=== PATIENT | female | born 1955 | race Caucasian/White ===

== ENCOUNTER 2023-06-16 11:34 | Outpatient (CLI) | payer MEDICARE, SELFPAY ==
--- NOTE | ~2023-06-16 | XR_ITS ---
XR abdomen/kub 1V 06/16/2023 12:00 INDICATION: Left lower quadrant pain. TECHNIQUE: KUB COMPARISON: None FINDINGS: Bowel gas pattern is normal. There are cholecystectomy clips. There is no evidence of free air, mass, organomegaly, ascites or obstruction. No abnormal calculi are seen. Calcifications in the pelvis are believed to be phleboliths. The bones appear intact. IMPRESSION: 1: No acute abdominal abnormality identified. Reviewed, dictated and finalized at location L.
== END 2023-06-16 11:35 | disposition home or self-care (01) ==
PROVIDERS: PCP Family Medicine; Visit Provider Nurse Practitioner
DX: R10.32 Left lower quadrant pain (principal); M25.551 Pain in right hip; M25.552 Pain in left hip
CPT/HCPCS: 74018

== ENCOUNTER 2023-06-29 07:07 | Outpatient (CLI) | payer MEDICARE, SELFPAY ==
--- NOTE | ~2023-06-29 | CT_ITS ---
EXAMINATION: CT abdomen pelvis w con DATE: 06/29/2023 07:59 INDICATION: Left lower quadrant pain TECHNIQUE: Computed tomography (CT) of the abdomen and pelvis was performed with 100 cc Omnipaque 350 intravenous contrast. The dose-length product was 185.67 mGy-cm. Automated exposure control and iter ative reconstruction technique were employed. COMPARISON: None. FINDINGS: Lung bases unremarkable. Heart size normal. No significant pleural or pericardial effusion. There is a right renal cyst measuring 2 cm. Status post cholecystectomy. The liver, spleen, pancreas , adrenal glands and left kidney are unremarkable. Nonobstructive bowel gas pattern. Moderate colonic fecal loading. No evidence for diverticulitis or appendicitis. No hydronephrosis. There is atheroscl erosis of the aorta without aneurysm. No lymphadenopathy. Bladder is decompressed. No abnormal pelvic masses or fluid collections. IMPRESSION: 1. No acute abdominal abnormality. Reviewed, dictated and finalized at location B.
[2023-06-29 07:52] LABS: Estimated Glomerular Filt Rate > 60
== END 2023-06-29 07:08 | disposition home or self-care (01) ==
LOC: ANHIMG 07:13
PROVIDERS: PCP Family Medicine; Visit Provider Nurse Practitioner
DX: R10.32 Left lower quadrant pain (principal)
CPT/HCPCS: 74177; Q9967

== ENCOUNTER 2023-08-04 09:12 | Outpatient (CLI) | payer MEDICARE, SELFPAY ==
--- NOTE | ~2023-08-04 | XR_ITS ---
Supine and upright views of the abdomen Clinical history: Abdominal pain COMPARISON: 06/08/2023 Findings: Bowel gas pattern is nonspecific. No evidence for obstruction or free air. No abnormal mass lesion or calcification is seen. Stable right upper quadrant surgical clips. Stable calcified pelvic phleboliths. Osseous structures are intact. Impression: No significant abnormality is seen. Reviewed, dictated and finalized at [facility]. [facility] Impression: No significant abnormality is seen.
== END 2023-08-04 09:13 | disposition home or self-care (01) ==
PROVIDERS: PCP Family Medicine; Visit Provider Nurse Practitioner
DX: R10.12 Left upper quadrant pain (principal); K58.1 Irritable bowel syndrome with constipation; K92.89 Other specified diseases of the digestive system
CPT/HCPCS: 74018

== ENCOUNTER 2024-04-10 15:09 | Outpatient (CLI) | payer MEDICARE, SELFPAY ==
--- NOTE | ~2024-04-10 | XR_ITS ---
EXAM: XR abdomen/kub 1V DATE: 04/10/2024 15:27 HISTORY: R11.2 - Nausea with vomiting, unspecified . COMPARISON: 08/04/2023. FINDINGS: Cholecystectomy clips. Clear lung bases. Normal bowel gas pattern. No organomegaly. Multipl e pelvic phleboliths. Lumbar degenerative disc disease. Mild bilateral hip osteoarthritis. IMPRESSION: Unremarkable abdominal radiograph findings. Reviewed, dictated and finalized at location K.
[2024-04-10 16:02] LABS: Hematocrit 41.3 % (37.0-47.0); Hemoglobin 13.7 g/dL (12.0-15.0); Mean Corpuscular HGB Conc 33.2 g/dl (32-36); Mean Corpuscular Hemoglobin 30.7 pg (26-34); Mean Corpuscular Volume 92.6 fl (80-100); Mean Platelet Volume 11.4 fl (7.4-10.4); Platelet Count Result 154 k/mm3 (150-375); Red Blood Count 4.46 M/mm3 (4.2-5.4); Red Cell Distribution Width 14.1 % (11.5-14.5); White Blood Count 8.1 K/mm3 (4.5-10.0)
[2024-04-10 16:26] LABS: Erythrocyte Sedimentation Rate 16 mm/hr (0-20)
[2024-04-10 17:05] LABS: CRP < 0.5 mg/dL (<1.0)
== END 2024-04-10 15:10 | disposition home or self-care (01) ==
LOC: ANHIMG 15:14
PROVIDERS: PCP Family Medicine; Visit Provider Nurse Practitioner
DX: R10.12 Left upper quadrant pain (principal); K92.89 Other specified diseases of the digestive system; R19.7 Diarrhea, unspecified; R63.0 Anorexia; F41.9 Anxiety disorder, unspecified; M25.551 Pain in right hip; M25.552 Pain in left hip
CPT/HCPCS: 36415; 74018; 84443; 85027; 85652; 86140

== ENCOUNTER 2024-04-12 08:06 | Outpatient (CLI) | payer MEDICARE, SELFPAY ==
[2024-04-12 09:16] LABS: Alanine Aminotransferase 12 U/L (6-35); Albumin Level 4.6 g/dL (3.5-5.1); Alkaline Phosphatase 94 U/L (38-126); Anion Gap 9 mmol/L (4-12); Aspartate Amino Transferase 25 U/L (14-36); Bilirubin,Total 0.3 mg/dL (0.2-1.3); Blood Urea Nitrogen 16 mg/dL (7-17); Calcium 9.3 mg/dL (8.4-10.2); Carbon Dioxide 26 mmol/L (22-30); Chloride 104 mmol/L (98-107); Estimated Glomerular Filt Rate > 60; Glucose 89 mg/dL (65-110); Potassium 4.3 mmol/L (3.4-5.0); Sodium 139 mmol/L (137-145)
[2024-04-12 10:33] LABS: Toxigenic C. Diff NEGATIVE (NEGATIVE)
[2024-04-16 13:58] LABS: H pylori Ag Stool RESULT: Not Detected
[2024-04-20 18:54] LABS: Calprotectin, Stool 114 mcg/g
[2024-04-20 22:33] LABS: Pancreatic Elastase, Stool 487 mcg/g
== END 2024-04-12 08:07 | disposition home or self-care (01) ==
LOC: ANHLAB 08:09
PROVIDERS: PCP Family Medicine; Visit Provider Nurse Practitioner
DX: K92.89 Other specified diseases of the digestive system (principal); A04.8 Other specified bacterial intestinal infections; R11.2 Nausea with vomiting, unspecified; R19.4 Change in bowel habit; R19.7 Diarrhea, unspecified; R63.0 Anorexia
CPT/HCPCS: 36415; 80053; 82653; 83993; 87045; 87177; 87209; 87269; 87338; 87427; 87449; 87493

== ENCOUNTER 2024-06-20 13:35 | Outpatient (CLI) | payer MEDICARE, SELFPAY ==
--- NOTE | ~2024-06-20 | CT_ITS ---
EXAMINATION: CT abdomen pelvis w con DATE: 06/20/2024 14:02 INDICATION: Unspecified abdominal pain. TECHNIQUE: Computed tomography (CT) of the abdomen and pelvis was performed with 100 mL Omnipaque 350 intravenous contrast. Automated exposure control and iterative reconstruction technique were employe d. The dose-length product was 266.28 mGy-cm. COMPARISON: CT abdomen and pelvis 06/29/2023 FINDINGS: The visualized portions of the lung bases demonstrate mild atelectasis on the right. No ple ural effusion. The heart size is normal. No pericardial effusion. The liver and spleen are normal. Th ere are changes of cholecystectomy. The pancreas and adrenal glands are normal. There is a 2.2 cm cys t in right kidney. Left kidney is normal. There are no dilated loops of bowel. The appendix is not vi sualized. There is calcified atherosclerosis of the aorta and many of the other arteries. There are n o pathologically enlarged lymph nodes. There is no free intraperitoneal fluid. There is mild lumbar s pondylosis. IMPRESSION: 1. No etiology for the patient's symptoms. Reviewed, dictated and finalized at location A.
[2024-06-20 13:56] LABS: Estimated Glomerular Filt Rate > 60
== END 2024-06-20 13:36 | disposition home or self-care (01) ==
LOC: ANHIMG 13:40
PROVIDERS: PCP Family Medicine; Visit Provider Nurse Practitioner
DX: R10.12 Left upper quadrant pain (principal); R10.13 Epigastric pain; R10.33 Periumbilical pain; R11.2 Nausea with vomiting, unspecified
CPT/HCPCS: 74177; Q9967

== ENCOUNTER 2024-07-13 00:32 | Day surgery (SDC) | payer MEDICARE, SELFPAY ==
[2024-07-06 11:11] VITALS: BMI 20.4
--- NOTE | 2024-07-06 13:12 | PC.NURSE ---
Spoke with patient regarding medication plavix. Pt. verbalizes understanding that the last dose of plavix is to be taken on 07/08/2024 and the Endoscopist will instruct them when to restart after the procedure.
[2024-07-13 09:39] VITALS: BP 146/73; PULSE 86; RESP 20; TEMP 36.3; O2SAT 100; BMI 19.5
--- NOTE | 2024-07-13 09:40 | P.PNAN_ITS ---
Anes - Initial Pre Proc Eval Procedure: Operation Date: 07/13/24 11:00 Proposed Procedures p Esophagogastroduodenoscopy & Colonoscopy - Caden Ruiz MD Date/Time: 07/13/24 09:40 Surgeon: Caden Ruiz MD Pre Op Diagnosis: diarrhea, epigastric pain, nausea, GERD Patient Data Age: 68 Gender: F Height: 1.73 m Weight: 61 kg Allergies Allergy/AdvReac Type Severity Reaction Status Date / Time levofloxacin [From Levaquin] Allergy Intermediate body aches Verified 07/13/24 09:35 Home Medications Medication Instructions Recorded Confirmed Type aspirin 81 mg tablet,delayed 81 mg PO DAILY 06/16/23 07/13/24 History release (Adult Aspirin Regimen) cholecalciferol (vitamin D3) 25 25 mcg PO DAILY 06/16/23 07/13/24 History mcg (1,000 unit) capsule cyanocobalamin (vitamin B-12) 1,000 mcg subcut MONTHLY 06/16/23 07/13/24 History 1,000 mcg/mL injection kit magnesium 200 mg tablet 400 mg PO DAILY 06/16/23 07/13/24 History potassium chloride 20 mEq 20 meq PO DAILY 06/16/23 07/13/24 History tablet,extended release zolpidem 5 mg tablet 5 mg PO QHS 06/16/23 07/13/24 History alendronate 70 mg tablet 70 mg PO WEEKLY 08/25/23 07/13/24 History lorazepam 0.5 mg tablet (Ativan) 0.5 mg PO DAILY PRN Anxiety 08/25/23 07/13/24 History amlodipine 5 mg tablet 5 mg PO DAILY 04/10/24 07/13/24 History clopidogrel 75 mg tablet (Plavix) 75 mg PO DAILY 04/10/24 07/13/24 History coenzyme Q10 100 mg capsule 100 mg PO HS 04/10/24 07/13/24 History mv-mn-folic 200 mcg-vit K 15 1 cap PO BID 04/10/24 07/13/24 History mcg-lutein 5 mg-zeaxanthin 1 mg capsule (PreserVision AREDS 2 Plus Multivit) rabeprazole 20 mg tablet,delayed 20 mg PO BID #60 tabs 04/10/24 07/13/24 Rx release (AcipHex) rosuvastatin 20 mg tablet 20 mg PO HS 04/10/24 07/13/24 History hyoscyamine sulfate 0.125 mg 0.125 mg PO .every 6 hours PRN 06/12/24 07/13/24 Rx tablet (Levsin) abdominal pain #120 tabs metoprolol succinate 50 mg 50 mg PO DAILY 06/12/24 07/13/24 History tablet,extended release 24 hr umeclidinium 62.5 mcg-vilanterol 1 inh inhalation DAILY 06/12/24 07/13/24 History 25 mcg/actuation powdr for inhalation (Anoro Ellipta) metoclopramide HCl 5 mg tablet 5 mg PO TID Nausea 07/06/24 07/13/24 History sertraline 100 mg tablet 200 mg PO DAILY 07/06/24 07/13/24 History sucralfate 1 gram tablet (Carafate) 1 g PO WMHS 07/06/24 07/13/24 History trazodone 100 mg tablet 200 mg PO HS PRN Insomnia 07/06/24 07/13/24 History Patient hx anesthesia problems: none Family hx anesthesia problems: none Results Review: All pre-operative results and documents have been reviewed as part of the pre- operative evaluation. [facility] Past Medical History Medical History Abnormal weight loss Bilateral hip pain Chronic constipation Chronic gastritis Decreased appetite Dysphagia Epigastric pain FH: cholecystectomy Gas bloat syndrome GERD with esophagitis Irritable bowel syndrome with constipation LLQ pain LUQ pain Nausea Surgical History Surgical History H/O: hysterectomy Social History Social History Smoking packs per day: 1 Smoking cigarettes per day: 20.0 Years smoked: 15 Smoking pack-years: 15.00 Smoking status: Former smoker Tobacco type: cigarettes Second hand tobacco smoke exposure: Yes Alcohol intake: never Substance use: never Substance use type: does not use Living arrangements: with family Occupation/Education: occupation Gender identity (if verbalized by the patient): Female Spiritual care concerns: No Anes - Eval Final PreProcedure Day of Procedure 07/13/24 09:40 Patient weight: normal Heart: regular rate and rhythm Lungs: clear to auscultation Airway: Mallampati scale and special considerations (Teeth in poor condition, none loose. ) Neurological: alert and oriented Last oral intake: >/= 8 hours ASA classification: III Emergent: no Anesthetic plan: proceed Anesthesia type and monitoring: general GIVS and standard monitoring Results Review: All pre-operative results and documents have been reviewed as part of the pre- operative evaluation. HTN, hyperlipidemia, CKD, CVA, s/p PTCA 10/12 to LAD, cleared to hold AC for this procedure. Informed Consent: The patient's anesthetic plan and its attendant risks and benefits were discussed with the patient/family/POA. Questions were solicited and answers provided to the satisfaction of the patient/family/POA.
[2024-07-13] MEDS: LACTATED RINGERS 1,000 ML 150 ML IV CONT (09:45)
--- NOTE | 2024-07-13 09:46 | PM.HPGS ---
History of Present Illness History of Present Illness Consent: Risks, benefits, and alternatives have been discussed and questions answered. Patient agrees to proceed with procedure. Chief complaint: diarrhea, epigastric pain, nausea, GERD Narrative: Jamia Rowan is a 68 year old female here for egd and colonoscopy (had both last year at another hospital, gastritis, rectal polyps). Daily nausea and abdominal pain, also loose stools. Using ppi, levsin, reglan prn. CT negative, CBC, CMP, TSH, CRP, ESR WNL Stool Calprotectin borderline elevated at 114, H.pylori Stool Negative, Fecal Elastase WNL Review of Systems Review of Systems: All systems reviewed & are unremarkable except as noted in HPI and below PMFSH Past Medical History Medical History Abnormal weight loss Bilateral hip pain Chronic constipation Chronic gastritis Decreased appetite Dysphagia Epigastric pain FH: cholecystectomy Gas bloat syndrome GERD with esophagitis Irritable bowel syndrome with constipation LLQ pain LUQ pain Nausea Surgical History Surgical History H/O: hysterectomy Social History Social History Smoking packs per day: 1 Smoking cigarettes per day: 20.0 Years smoked: 15 Smoking pack-years: 15.00 Smoking status: Former smoker Tobacco type: cigarettes Second hand tobacco smoke exposure: Yes Alcohol intake: never Substance use: never Substance use type: does not use Living arrangements: with family Occupation/Education: occupation Gender identity (if verbalized by the patient): Female Spiritual care concerns: No Meds Home Medications and Allergies Home Medications Medication Instructions Recorded Confirmed Type aspirin 81 mg tablet,delayed 81 mg PO DAILY 06/16/23 07/13/24 History release (Adult Aspirin Regimen) cholecalciferol (vitamin D3) 25 25 mcg PO DAILY 06/16/23 07/13/24 History mcg (1,000 unit) capsule cyanocobalamin (vitamin B-12) 1,000 mcg subcut MONTHLY 06/16/23 07/13/24 History 1,000 mcg/mL injection kit magnesium 200 mg tablet 400 mg PO DAILY 06/16/23 07/13/24 History potassium chloride 20 mEq 20 meq PO DAILY 06/16/23 07/13/24 History tablet,extended release zolpidem 5 mg tablet 5 mg PO QHS 06/16/23 07/13/24 History alendronate 70 mg tablet 70 mg PO WEEKLY 08/25/23 07/13/24 History lorazepam 0.5 mg tablet (Ativan) 0.5 mg PO DAILY PRN Anxiety 08/25/23 07/13/24 History amlodipine 5 mg tablet 5 mg PO DAILY 04/10/24 07/13/24 History clopidogrel 75 mg tablet (Plavix) 75 mg PO DAILY 04/10/24 07/13/24 History coenzyme Q10 100 mg capsule 100 mg PO HS 04/10/24 07/13/24 History mv-mn-folic 200 mcg-vit K 15 1 cap PO BID 04/10/24 07/13/24 History mcg-lutein 5 mg-zeaxanthin 1 mg capsule (PreserVision AREDS 2 Plus Multivit) rabeprazole 20 mg tablet,delayed 20 mg PO BID #60 tabs 04/10/24 07/13/24 Rx release (AcipHex) rosuvastatin 20 mg tablet 20 mg PO HS 04/10/24 07/13/24 History hyoscyamine sulfate 0.125 mg 0.125 mg PO .every 6 hours PRN 06/12/24 07/13/24 Rx tablet (Levsin) abdominal pain #120 tabs metoprolol succinate 50 mg 50 mg PO DAILY 06/12/24 07/13/24 History tablet,extended release 24 hr umeclidinium 62.5 mcg-vilanterol 1 inh inhalation DAILY 06/12/24 07/13/24 History 25 mcg/actuation powdr for inhalation (Anoro Ellipta) metoclopramide HCl 5 mg tablet 5 mg PO TID Nausea 07/06/24 07/13/24 History sertraline 100 mg tablet 200 mg PO DAILY 07/06/24 07/13/24 History sucralfate 1 gram tablet (Carafate) 1 g PO WMHS 07/06/24 07/13/24 History trazodone 100 mg tablet 200 mg PO HS PRN Insomnia 07/06/24 07/13/24 History Allergies Allergy/AdvReac Type Severity Reaction Status Date / Time levofloxacin [From [facility]] Allergy Intermediate body aches Verified 07/13/24 09:35 Vital Signs Vital Signs - 24 hr 07/13/24 09:39 Temperature 97.3 F L Pulse Rate 86 Respiratory Rate 20 Blood Pressure 146/73 H Pulse Oximetry 100 Oxygen Delivery Room Air Exam Const: General: comfortable and no acute distress HENMT: Face/Nose/Sinus: Normal nares present Eyes: General: appearance normal, both eyes and all related structures Neck: Neck: no JVD Resp: Auscultation: clear to auscultation bilaterally Cardio: Rate: regular rate Rhythm: regular rhythm GI: Inspection: non-distended GI Palp: Yes Soft to palpation Skin: General skin exam: normal color Neuro: General: gait normal Speech: normal speech Extrem: General: normal to inspection Psych: Mental Status: mental status grossly normal Assessment and Plan Assessment and plan (1) Diarrhea: Code(s): R19.7 - Diarrhea, unspecified Status: Acute Assessment and Plan: colonoscopy with random bx (2) Nausea & vomiting: Code(s): R11.2 - Nausea with vomiting, unspecified Status: Acute Assessment and Plan: egd with bx (3) Epigastric pain: Code(s): R10.13 - Epigastric pain Status: Acute
[2024-07-13 10:13] VITALS: BP 102/75; PULSE 75; RESP 20; O2SAT 100
--- NOTE | 2024-07-13 10:13 | SUR.OPER ---
EGD START 950, END 954 COLONOSCOPY START 1000, END 1011
[2024-07-13 10:23] VITALS: BP 110/57; PULSE 72; RESP 17; O2SAT 100
[2024-07-13 10:33] VITALS: BP 117/61; PULSE 69; RESP 13; O2SAT 100
== END 2024-07-13 10:42 | disposition home or self-care (01) ==
PROVIDERS: PCP Family Medicine; Visit Provider Internal Medicine Gastroenterology
PROC: 0DJ08ZZ Inspection of Upper Intestinal Tract, Via Natural or Artificial Opening Endoscopic (ICD-10-PCS; CPT 43235; principal; 2024-07-13 11:00)
DX: Z09 Encounter for follow-up examination after completed treatment for conditions other than malignant neoplasm (principal); K21.00 Gastro-esophageal reflux disease with esophagitis, without bleeding; K29.50 Unspecified chronic gastritis without bleeding; D12.3 Benign neoplasm of transverse colon; K64.8 Other hemorrhoids; K59.09 Other constipation; K31.89 Other diseases of stomach and duodenum; K58.1 Irritable bowel syndrome with constipation; Z79.82 Long term (current) use of aspirin; Z79.83 Long term (current) use of bisphosphonates; Z79.02 Long term (current) use of antithrombotics/antiplatelets; Z79.51 Long term (current) use of inhaled steroids; Z98.890 Other specified postprocedural states; Z87.891 Personal history of nicotine dependence
CPT/HCPCS: 43239; 45385; 45380; 88305; J2704; J7120

== ENCOUNTER 2025-04-04 07:37 | Outpatient (CLI) | payer MEDICARE, SELFPAY ==
--- NOTE | ~2025-04-04 | NM_ITS ---
EXAM: NM gastric emptying study DATE: 04/04/2025 17:24 CDT INDICATION: Nausea TECHNIQUE: A gastric emptying study was performed using the methodology of Juwan MOSS, et al. J Nucl Med 2007; 48:568-572. The patient was given a meal consisting of 2 scrambled eggs labeled with mCi T c-99m sulfur colloid, 2 slices of toast, two packages of jam, and approximately 120 mL of water. Simu ltaneous anterior and posterior 1-min images of the abdomen were obtained with the patient supine at multiple time points over a total period of 4 hours. The geometric mean of anterior and posterior vie ws was determined, and the percentage retention was calculated for each time point. COMPARISON: None. FINDINGS: Gastric retention of the radiotracer-labeled meal was 48%, 33%, and 8% at the 1-hour, 2-ho ur, and 4-hour time points, respectively. With this technique, apparent rapid gastric emptying is sug gested by <30% gastric retention at 1 hour. Delayed gastric emptying is defined by gastric retention of >90% at 1 hour, >60% retention at 2 hours, or >10% retention at 4 hours. IMPRESSION: 1. Normal gastric emptying. Reviewed, dictated and finalized at location B. IMPRESSION: 1. Normal gastric emptying.
== END 2025-04-04 07:38 | disposition home or self-care (01) ==
PROVIDERS: PCP Family Medicine; Visit Provider Internal Medicine Gastroenterology
DX: R11.0 Nausea (principal)
CPT/HCPCS: 78264; A9541